=== PATIENT | female | born 1990 | race Caucasian/White ===

== ENCOUNTER 2016-07-08 18:58 | Emergency (ER) ==
--- NOTE | 2016-07-08 20:07 | PROVIDER DOCUMENTATION ---
HPI-Abdominal Pain/GI Problem - General Chief Complaint: Female Stated Complaint: FEMALE Time Seen by Provider: 07/08/16 19:58 Source: patient Allergies/Adverse Reactions: Patient Allergies Allergy/AdvReac Type Severity Reaction Status Date / Time morphine Allergy Intermediate SWELLING Verified 07/08/16 20:11 Home Medications: Ranitidine [Zantac] 150 mg PO BID 08/31/15 Valacyclovir HCl [Valtrex] 500 mg PO DAILY 12/17/15 - History of Present Illness-ABD Nature of Presenting Problems: 25 year old WF presents with c/o LUQ abd pain, left flank pain and LLQ pain, onset this morning. pt reports she has a history of PCOS and this feels like a ruptured cyst but with new symptoms of abdominal distention, urinary frequency, vomiting this morning and a fever to 101.6 at home. additional symptoms include green/red vaginal discharge, pt reports she has a history genital ulcers and she develops these symptoms before a breakout. Abdominal Pain Onset Location: reports: LUQ, LLQ, flank Pain Radiation: reports: LUQ, LLQ, flank Quality of Pain: reports: aching, dull Severity in ED: reports: mild Onset/Duration: reports: this morning Timing: reports: still present, constant, getting worse Activities at Onset: reports: none. denies: light activity, moderate activity, vigorous activity, recent emotional stress, recent physical stress, recent trauma history, possible bad food, cold exposure, eating, out of country travel , rest, sleep, sexual activity, other Exposure to sick contacts?: No Modifying Factors: improves with: nothing Associated Symptoms: reports: genitourinary problems. denies: denies symptoms, anxiety, arm pain, back/neck pain, chest pain, constipation, cough, diaphoresis , diarrhea, dizziness, EENT symptoms, fatigue, fever/chills, headaches, heartburn, joint pain, loss of appetite, malaise, muscle aches, sinus congestion /drainage, nausea, rash, seizure, shortness of breath, sensory/motor loss, pain with inspiration, swelling/mass in abdomen, syncope, vomiting, weakness, trouble walking, other Last BM: this afternoon Dark Stools Present?: reports: none noticed. denies: maroon, black, tarry, bright red blood Rectal Bleeding: reports: none. denies: bleeding without stool, bright red blood on paper, blood mixed with stool, blood streaks on stool, bloody diarrhea # of Diarrhea Episodes: 0 Rectal Pain: reports: none. denies: known anal fissure(s), fistula, abscess, r/ t intercourse # of Vomiting Episodes: 0 Emesis Description: reports: none Review of Systems - Adult - REVIEW OF SYSTEMS - ADULT Constitutional: reports: no symptoms reported. denies: chills, fever, fatique Eyes: reports: no symptoms reported. denies: discharge, blurred vision, double vision Ears, Nose, Mouth & Throat: reports: no symptoms reported. denies: ear discharge, ear pain, nose pain, loose teeth, throat pain, throat swelling Cardiovascular: reports: no symptoms reported. denies: chest pain, palpitations , syncope Respiratory: reports: no symptoms reported. denies: chronic cough, cough, shortness of breath, wheezing Gastrointestinal: reports: see HPI, abdominal pain. denies: hematemesis, constipation, diarrhea, difficulty swallowing, frequent heartburn, nausea, rectal bleeding, vomiting Genitourinary: reports: see HPI, discharge, flank pain. denies: dysuria, frequency, frequent UTI's, hematuria, hesitency, incontinence, urinary retention , urgency Musculoskeletal: reports: no symptoms reported. denies: bone pain, joint pain, joint swelling, neck pain Integumentary: reports: no symptoms reported. denies: hives, nail changes, skin thickening Neurological: reports: no symptoms reported. denies: ataxia, dizziness/vertigo , numbness, paresthesia, tremors Psychiatric: reports: no symptoms reported Endocrine: reports: no symptoms reported Hematologic/Lymphatic: reports: no symptoms reported Allergic/Immunologic: reports: no symptoms reported All Other Systems: Reviewed and Negative Past History - Adult - PAST MEDICAL HISTORY-ADULT Review of Records: reports: Old Records Reviewed, Nursing Assessment Review, Medications Reviewed, Social history reviewed & non-contributory. Major Childhood Illnesses: reports: denies history Cardiovascular: reports: denies history. denies: murmur, PAD Respiratory: reports: asthma. denies: cystic fibrosis, lung disease Gastrointestinal: reports: GERD. denies: obstruction, pancreatitis Obstetrical/Gynecological: reports: other (PCOS; herpes; miscarriage X2, ) Genitourinary: reports: denies history, other (PCOS). denies: incontinence, kidney stones Musculoskeletal: reports: denies history. denies: chronic pain, other fractures Neurological: reports: headaches/migraines. denies: cognitive dysfunction, CVA Psychiatric: reports: anxiety, depression. denies: suicide attempt, schizophrenia Endocrine/Immune: reports: Diabetes Other Conditions: reports: denies history - PRIOR SURGERIES/PROCEDURES Surgical/Procedure History: reports: BTL, other (ear tubes; exploratory endometriosis) - PRIOR HOSPITALIZATIONS Prior Hospitalizations: reports: none - IMMUNIZATION STATUS Childhood Immunizations: See Nurse Assessment Flu Vaccine: See Nurse Assessment - FAMILY HISTORY Family History: CAD under 55yo - SOCIAL HISTORY Smoking: denies, quit greater than 1 year Substance Use: none/never Alcohol Use Frequency: never Physical Exam-General - PHYSICAL EXAM-ADULT Initial Vital Signs Reviewed: Yes - CONSTITUTIONAL General Appearance: appears well, alert, no apparent distress - EYES Eyes: PERRL/EOMI, pink conjunctivae - HEAD, EARS, NOSE, MOUTH & THROAT HENMT: normocephalic/atraumatic, moist mucous membranes, normal ENT inspection - NECK Neck: non-tender, full range of motion, normal inspection - RESPIRATORY Respiratory: chest non-tender, lungs clear, normal breath sounds - CARDIOVASCULAR Cardiovascular: normal peripheral pulses, regular rate, rhythm, no edema - GASTROINTESTINAL (ABDOMEN) Abdominal Exam: normal bowel sounds, soft, tenderness (LUQ, LLQ, left flank). negative: non tender, distended, guarding, rigid, rebound, McBurney's point tenderness, Rueda's sign, obturator sign, psoas, Rovsing's sign - GENITOURINARY Female Genitalia/Pelvic Exam: deferred Rectal Exam: deferred Hemoccult Exam: deferred - LYMPHATIC Lymphatic: no adenopathy - MUSCULOSKELETAL Back Exam: normal inspection, no CVA tenderness, no vertebral tenderness. negative: CVA tenderness, decreased range of motion, vertebral tenderness Extremity: normal range of motion, non-tender, normal gait Peripheral Pulses: radial (R): 3+, radial (L): 3+, dorsalis-pedis (R): 3+, dorsalis-pedis (L): 3+ - SKIN Integumentary: normal color, normal turgor, warm/dry - NEUROLOGIC Neurologic: grossly normal, no motor/sensory deficits - PSYCHIATRIC Psych/Mental Status: normal mood/affect, normal thought content, normal thought process, oriented x 3 Progress - PLAN OF CARE/RESULTS Progress/Plan/Lab Results: Laboratory Tests 07/08/16 07/08/16 07/08/16 20:10 20:10 20:15 WBC 9.26 RBC 5.26 Hgb 14.2 Hct 42.7 MCV 81.2 MCH 27.0 MCHC 33.3 RDW Std Deviation 13.8 Plt Count 316 MPV 10.7 H Immature Gran % (Auto) 0.0 Neut % (Auto) 54.5 Lymph % (Auto) 35.1 Sanders % (Auto) 7.8 Eos % (Auto) 2.2 Baso % (Auto) 0.4 Immature Gran # (Auto) 0.00 Neut # (Auto) 5.05 Lymph # (Auto) 3.25 Sanders # (Auto) 0.72 H Eos # (Auto) 0.20 Baso # (Auto) 0.04 Sodium 139 Potassium 3.4 L Chloride 100 Carbon Dioxide 24 L Anion Gap 15 BUN 12 Creatinine 0.7 Estimated GFR/1.73 m2 > 60 BUN/Creatinine Ratio 17 Glucose 141 H Calculated Osmolality 280 Calcium 9.0 Total Bilirubin 0.24 AST 13 ALT 15 Alkaline Phosphatase 83 Total Protein 7.1 Albumin 4.2 Globulin 2.9 Albumin/Globulin Ratio 1.4 Amylase 71 Lipase 37 Urine Source Urine Color Urine Turbidity Urine pH Ur Specific Milton Urine Protein Ur Glucose (Stick) Ur Ketones (Stick) Urine Blood Urine Nitrite Urine Bilirubin Urobilinogen Dipstick Urine Leukocytes Urine WBC (Auto) Urine RBC (Auto) U Epithel Cells (Auto) Urine Bacteria (Auto) Urine Test NEGATIVE 07/08/16 20:15 WBC RBC Hgb Hct MCV MCH MCHC RDW Std Deviation Plt Count MPV Immature Gran % (Auto) Neut % (Auto) Lymph % (Auto) Sanders % (Auto) Eos % (Auto) Baso % (Auto) Immature Gran # (Auto) Neut # (Auto) Lymph # (Auto) Sanders # (Auto) Eos # (Auto) Baso # (Auto) Sodium Potassium Chloride Carbon Dioxide Anion Gap BUN Creatinine Estimated GFR/1.73 m2 BUN/Creatinine Ratio Glucose Calculated Osmolality Calcium Total Bilirubin AST ALT Alkaline Phosphatase Total Protein Albumin Globulin Albumin/Globulin Ratio Amylase Lipase Urine Source CLEAN CATCH Urine Color YELLOW Urine Turbidity CLEAR Urine pH 5.5 Ur Specific Milton 1.023 Urine Protein NEGATIVE Ur Glucose (Stick) NEGATIVE Ur Ketones (Stick) 20 A Urine Blood NEGATIVE Urine Nitrite NEGATIVE Urine Bilirubin NEGATIVE Urobilinogen Dipstick NORMAL Urine Leukocytes NEGATIVE Urine WBC (Auto) <10 Urine RBC (Auto) 10-20 A U Epithel Cells (Auto) <10 Urine Bacteria (Auto) 1+ Urine Test Orders Category Date Time Status Saline Loc DIRECTED Care 07/08/16 20:03 Active NPO Diet 07/08/16 20:03 Completed ABDOMEN/PELVIS W/O CONTRAST [CT] Stat Exams 07/08/16 20:04 Draft AMYLASE [CHEM] Stat Lab 07/08/16 20:10 Completed CBC WITH ELECTRONIC DIFF [HEME] Stat Lab 07/08/16 20:10 Completed COMPREHENSIVE METABOLIC PANEL [CHEM] Stat Lab 07/08/16 20:10 Completed LIPASE [CHEM] Stat Lab 07/08/16 20:10 Completed TEST-URINE [PREG] Stat Lab 07/08/16 20:15 Completed URINALYSIS W/POSS RFLX CULT [URINALYSIS] Stat Lab 07/08/16 20:15 Completed Dicyclomine [Bentyl] Med 07/08/16 21:59 Discontinued 20 mg IM NOW ONE Ondansetron [Zofran] Med 07/08/16 22:00 Discontinued 4 mg PO NOW ONE Vital Signs - 24 hr 07/08/16 07/08/16 19:18 22:39 Temperature 98.0 F Pulse Rate 80 64 Respiratory 16 18 Rate Blood Pressure 132/92 113/62 O2 Sat by Pulse 100 100 Oximetry - CT/MRI 1 CT Study: Abdomen, Pelvis Impression: Normal (negative exam per Dr. Oscar) Departure - Departure Time of Disposition Order: 21:57 DIAGNOSIS: Abdominal pain Qualifiers: Abdominal location: left upper quadrant Qualified Code(s): R10.12 - Left upper quadrant pain Disposition: HOME 01 Certified Medical Emergency: Emergent Condition: Stable Additional Instructions: ED Follow Up Instructions: You have been treated by a care provider in the Emergency Department. These instructions are being provided to you so you can have an understanding of how to care for yourself upon discharge. Upon discharge from the Emergency Department, you are responsible for making arrangements for follow-up care by a physician of your choice. Take all prescribed medications as directed. Return to the Emergency Department immediately for any new or worsening symptoms. You may call the Physician Referral phone number at [phone] to obtain a list of Physicians who are taking new patients. Prescriptions: Dicyclomine [Bentyl] 10 mg PO AC + HS #20 capsule Promethazine [Phenergan] 25 mg PO Q6H PRN PRN #20 tablet PRN Reason: Nausea Promethazine [Phenergan] [address] Q6H PRN PRN #14 supp PRN Reason: Nausea Ondansetron [Zofran] 4 mg PO Q6H PRN PRN #20 tablet PRN Reason: Nausea Referrals: None,PCP [Primary Care Provider] - Forms: Return to School/Parent Work Instructions: Abdominal Pain, Adult, [id number] Attestation - Physician/ Mid-level Attestation Patient care was provided by Mid-level provider (RED HAT OPEN STACK ADMINISTRATOR/PA):: Yes Mid-level provider:: Rufus Rangel Mid-level documentation review:: The Mid-level provider documentation, treatment plan and medical decision making was reviewed by the physician who agrees with all treatment and medical decision making by the P.
[2016-07-08 20:26] LABS: MANUAL DIFF NEEDED? NO
[2016-07-08 20:26] LABS: URINE CULTURE NEEDED? NO; URINE MICRO REVIEW NEEDED? NO; URINE SOURCE CLEAN CATCH
[2016-07-08 20:31] LABS: BASO% 0.4 % (0.0-0.8); EOS% 2.2 % (0.0-10.0); HEMATOCRIT 42.7 % (37.0-47.0); HEMOGLOBIN 14.2 g/dL (12.0-16.0); LYMPH# 3.25 X1000 (1.2-3.4); LYMPH% 35.1 % (20.5-51.1); MCHC 33.3 g/dL (33-37); MCV 81.2 FL (81-99); MONO# 0.72 X1000 (0.11-0.59); MONO% 7.8 % (1.7-9.3); MPV 10.7 FL (7.4-10.4); NEUT% 54.5 % (42.2-75.2); PLT 316 X1000 (130-400); RBC 5.26 XMIL (4.2-5.4)
[2016-07-08 20:35] LABS: BILIRUBIN URINE NEGATIVE (NEGATIVE); BLOOD URINE NEGATIVE (NEGATIVE); COLOR YELLOW; GLUCOSE URINE NEGATIVE (NEGATIVE); LEUKOCYTES URINE NEGATIVE (NEGATIVE); NITRITE URINE NEGATIVE (NEGATIVE); PH URINE 5.5; PROTEIN URINE NEGATIVE (NEGATIVE); SP GRAVITY URINE 1.023; TURBIDITY URINE CLEAR (CLEAR); UROBILINOGEN URINE NORMAL (NORMAL)
[2016-07-08 20:36] LABS: UR EPITHELIAL CELLS <10 /HPF (<10); URINE BACTERIA 1+ /HPF; URINE WBC <10 /HPF (<10)
[2016-07-08 21:03] LABS: AGAP 15; ALBUMIN 4.2 g/dL (3.5-5.0); ALKALINE PHOSPHATASE 83 U/L (32-104); AMYLASE 71 U/L (20-200); BUN 12 mg/dL (8-22); CHLORIDE 100 mmol/L (98-107); COSMO 280; GOT 13 U/L (10-30); GPT 15 U/L (10-36); LIPASE 37 U/L (13-60); POTASSIUM 3.4 mmol/L (3.5-5.1); SODIUM 139 mmol/L (136-145); TCO2 24 mmol/L (25-35); TOTAL BILIRUBIN 0.24 mg/dL (0.20-1.00); TOTAL PROTEIN 7.1 g/dL (6.3-8.3)
--- NOTE | 2016-07-08 21:10 | Diag Imaging Result Document ---
PROCEDURE NAME: ABDOMEN/PELVIS W/O CONTRAST - 07/08/2016 CT ABDOMEN AND PELVIS WITH INTRAVENOUS CONTRAST: COMPARISON: None. FINDINGS: No radiodense renal stones. No hydronephrosis or hydroureter. No bowel obstruction or inflammation. Normal appendix. Urinary bladder, uterus, ovaries, and rectum are normal. Degenerative changes of the sacroiliac joints. No acute bony lesions. IMPRESSION: Negative exam.
[2016-07-08] MEDS ORDERED: BENTYL IM ONE (21:59)
[2016-07-08] MEDS ORDERED: ZOFRAN PO ONE (22:00)
[2016-07-08 22:40] VITALS: BP 113/62
== END 2016-07-08 22:44 | disposition home or self-care (01) ==
LOC: ED 18:58
DX: R10.12 Left upper quadrant pain (principal); R10.9 Unspecified abdominal pain; R10.32 Left lower quadrant pain; R14.0 Abdominal distension (gaseous); R35.0 Frequency of micturition; R11.10 Vomiting, unspecified; R50.9 Fever, unspecified; N89.8 Other specified noninflammatory disorders of vagina; R10.812 Left upper quadrant abdominal tenderness; R10.814 Left lower quadrant abdominal tenderness; R10.819 Abdominal tenderness, unspecified site; K21.9 Gastro-esophageal reflux disease without esophagitis; E11.9 Type 2 diabetes mellitus without complications; Z79.899 Other long term (current) drug therapy; Z87.891 Personal history of nicotine dependence; Z82.49 Family history of ischemic heart disease and other diseases of the circulatory system
CPT/HCPCS: 36415; 74176; 80053; 81001; 81025; 82150; 83690; 85025; 96372; J0500